=== PATIENT | female | born 1955 | race American Indian/Alaskan Native ===

== ENCOUNTER 2020-07-04 11:46 | Emergency (ER) | payer OTHER, BC ==
[2020-07-04 12:34] VITALS: BP 138/81
--- NOTE | 2020-07-04 13:16 | XRay Report ---
RIGHT FOOT 3 VIEW INDICATION / CLINICAL INFORMATION: bed ran over foot, Rt. 5th toe swelling. COMPARISON: None available. FINDINGS: BONES/JOINT(S): No acute fracture or subluxation. No significant degenerative changes. SOFT TISSUES: No significant abnormality. ADDITIONAL FINDINGS: None. Signer Name: Lucio Su MD Signed: 07/04/2020 1:11 PM Workstation Name: [id number]
--- NOTE | 2020-07-04 13:30 | Emergency Department Report ---
ED Extremity Problem HPI - General Chief complaint: Extremity Injury, Lower Stated complaint: WORK INJURY Time Seen by Provider: 07/04/20 13:20 Source: patient Mode of arrival: Ambulatory Limitations: No Limitations - History of Present Illness Initial comments: Is a very pleasant 65-year-old female presents the emergency department chief complaint of pain to her right fifth toe on her right foot. 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 She has been having pain since. This occurred 2 days ago. She denies any other injuries. Pain is rated as a 7 out of 10 in severity. She denies any fever, chills, night sweats, headache, dizziness, blurry vision, nausea,, diarrhea, chest pain, shortness of breath or any other associated symptoms. Severity scale (0 -10): 0 - Related Data Home Medications Medication Instructions Recorded Confirmed Last Taken Olmesartan (Nf) [Benicar] 20 mg PO QDAY 10/18/13 10/18/13 10/18/13 Previous Rx's Medication Instructions Recorded Last Taken Type Ibuprofen [Motrin] 800 mg PO TID #30 tablet 10/18/13 Unknown Rx Naproxen 500 mg PO BID #20 tablet 07/04/20 Unknown Rx traMADoL [Ultram 50 MG tab] 50 mg PO Q6HR PRN #12 tablet 07/04/20 Unknown Rx Allergies Allergy/AdvReac Type Severity Reaction Status Date / Time No Known Allergies Allergy Unverified 10/18/13 08:00 ED Review of Systems ROS: Stated complaint: WORK INJURY Other details as noted in HPI Comment: All other systems reviewed and negative Constitutional: denies: chills, fever Eyes: denies: eye pain, eye discharge, vision change ENT: denies: ear pain, throat pain Respiratory: denies: cough, shortness of breath, wheezing Cardiovascular: denies: chest pain, palpitations Endocrine: no symptoms reported Gastrointestinal: denies: abdominal pain, nausea, diarrhea Genitourinary: denies: urgency, dysuria, discharge Musculoskeletal: as per HPI, arthralgia. denies: back pain, joint swelling Skin: denies: rash, lesions Neurological: denies: headache, weakness, paresthesias Psychiatric: denies: anxiety, depression Hematological/Lymphatic: denies: easy bleeding, easy bruising ED Past Medical Hx - Past Medical History Hx Hypertension: Yes Additional medical history: high cholesterol - Surgical History Hx Appendectomy: Yes - Social History Smoking Status: Never Smoker Substance Use Type: None - Medications Home Medications: Home Medications Medication Instructions Recorded Confirmed Last Taken Type Ibuprofen [Motrin] 800 mg PO TID #30 tablet 10/18/13 Unknown Rx Olmesartan (Nf) [Benicar] 20 mg PO QDAY 10/18/13 10/18/13 10/18/13 History Naproxen 500 mg PO BID #20 tablet 07/04/20 Unknown Rx traMADoL [Ultram 50 MG tab] 50 mg PO Q6HR PRN #12 tablet 07/04/20 Unknown Rx ED Physical Exam - General Limitations: No Limitations General appearance: alert, in no apparent distress - Head Head exam: Present: atraumatic, normocephalic - Eye Eye exam: Present: normal appearance, PERRL, EOMI Pupils: Present: normal accommodation - ENT ENT exam: Present: normal exam, normal orophraynx, mucous membranes moist - Neck Neck exam: Present: normal inspection, full ROM. Absent: tenderness, meningismus, lymphadenopathy - Respiratory Respiratory exam: Present: normal lung sounds bilaterally. Absent: respiratory distress, wheezes, rales, rhonchi, stridor - Cardiovascular Cardiovascular Exam: Present: regular rate, normal rhythm, normal heart sounds. Absent: systolic murmur, diastolic murmur, rubs, gallop - GI/Abdominal GI/Abdominal exam: Present: soft, normal bowel sounds. Absent: distended, tenderness, guarding, rebound, rigid - Extremities Exam Extremities exam: Present: normal inspection, full ROM, tenderness (Tenderness palpation of the right fifth digit on the right foot with some soft tissue swelling. No open wounds. Normal distal sensation capillary refill.). Absent: pedal edema, calf tenderness - Back Exam Back exam: Present: normal inspection, full ROM. Absent: tenderness - Neurological Exam Neurological exam: Present: alert, oriented X3 - Psychiatric Psychiatric exam: Present: normal affect, normal mood - Skin Skin exam: Present: warm, dry, intact, normal color. Absent: rash ED Course Vital Signs 07/04/20 12:29 Temperature 98.5 F Pulse Rate 78 Respiratory 16 Rate Blood Pressure 138/81 [Left] O2 Sat by Pulse 100 Oximetry ED Medical Decision Making - Radiology Data Radiology results: report reviewed, image reviewed [facility] [address] [place] [address] XRay Report Signed Patient: ROSALINA CONNELL MR#: [id number] : 1955 Acct:[id number] Age/Sex: 65 / F ADM Date: 07/04/20 Loc: ED Attending Dr: Ordering Physician: CAN BARNEY MD Date of Service: 07/04/20 Procedure(s): XR foot 3+V RT Accession Number(s): [id number] cc: ED MD SAVITA Fluoro Time In Minutes: RIGHT FOOT 3 VIEW INDICATION / CLINICAL INFORMATION: bed ran over foot, Rt. 5th toe swelling. COMPARISON: None available. FINDINGS: BONES/JOINT(S): No acute fracture or subluxation. No significant degenerative changes. SOFT TISSUES: No significant abnormality. ADDITIONAL FINDINGS: None. Signer Name: Lucio Su MD Signed: 07/04/2020 1:11 PM Workstation Name: [id number] Transcribed By: TAMEKA Dictated By: Lucio Su MD Electronically Authenticated By: Lucio Su MD Signed Date/Time: 07/04/20 1311 - Medical Decision Making X-ray fortunately showed no obvious acute fracture dislocation. Patient was educated that there is always a possibility of an occult fracture and is very important to follow-up with foot and ankle specialist for repeat x-rays of her symptoms are persistent. Recommended rest, ice, elevation and compression and follow-up. She was instructed to return the emerge department any change or worsening symptoms. She verbalized understanding the diagnosis, treatment plan and follow-up instructions and all her questions were answered. - Differential Diagnosis fracture, contusion, strain, sprain Critical care attestation.: If time is entered above; I have spent that time in minutes in the direct care of this critically ill patient, excluding procedure time. ED Disposition Clinical Impression: Toe contusion Qualifiers: Encounter type: initial encounter Toe: lesser toe Damage to nail status: without damage Laterality: right Qualified Code(s): S90.121A - Contusion of right lesser toe(s) without damage to nail, initial encounter Disposition: - TO HOME OR SELFCARE Is pt being admited?: No Condition: Stable Instructions: Foot Contusion (ED) Prescriptions: Naproxen 500 mg PO BID #20 tablet traMADoL [Ultram 50 MG tab] 50 mg PO Q6HR PRN #12 tablet PRN Reason: Pain Referrals: YISEL WILBURN DPM [Staff Physician] - 3-5 Days Forms: Work/School Release Form(ED) Time of Disposition: 13:29
== END 2020-07-04 13:42 | disposition home or self-care (01) ==
LOC: ED 11:46
DX: S90.121A Contusion of right lesser toe(s) without damage to nail, initial encounter (principal); I10 Essential (primary) hypertension; Z90.49 Acquired absence of other specified parts of digestive tract; Z79.1 Long term (current) use of non-steroidal anti-inflammatories (NSAID); Z79.899 Other long term (current) drug therapy; X58.XXXA Exposure to other specified factors, initial encounter; Y93.89 Activity, other specified; Y92.89 Other specified places as the place of occurrence of the external cause; Y99.8 Other external cause status